=== PATIENT | female | born 1955 | race Native Hawaiian/Other Pacific Islander ===

== ENCOUNTER 2017-07-26 10:27 | Emergency (ER) | payer OTHER ==
[~2017-07-26] VITALS: Ht 154.9 cm; Wt 95.5 kg
[~2017-07-26 10:27] MED LIST: ALBU8.5H8 IH; ASPI81 PO; FLUO-191 PO; LETR2.5 PO; MECL-111 PO; NITR0.4T50 SL; SUCR1TAB PO; TOPI100T37 PO; TRAZ-144 PO; ZIPR60CA2 PO
[2017-07-26] MEDS ORDERED: ACETAMINOPHEN 325 MG TABLET ONE (10:52)
[2017-07-26] MEDS ORDERED: SODIUM CHLORIDE 0.9% 1,000 ML IV ONE (11:00)
[2017-07-26] MEDS ORDERED: ACETAMINOPHEN 325 MG TABLET PO ONE (11:00)
[2017-07-26 11:43] LABS: BASOPHILS % (AUTO) 0.1 % (0.0-2.0); EOSINOPHILS % (AUTO) 0.3 % (1.0-6.0); HEMATOCRIT 40.2 % (36-46); HEMOGLOBIN 13.9 g/dL (12.0-16.0); LYMPHOCYTES # (AUTO) 1.2 K/uL (1.0-4.8); LYMPHOCYTES % (AUTO) 13.9 % (22.0-44.0); MEAN CORPUSCULAR HEMOGLOBIN 30.9 pg (26.0-34.0); MEAN CORPUSCULAR HGB CONC 34.5 G/dL (31.0-37.0); MEAN CORPUSCULAR VOLUME 90 fL (80-100); MONOCYTES # (AUTO) 1.1 K/uL (0.1-1.0); MONOCYTES % (AUTO) 13.1 % (2.0-9.0); NEUTROPHILS # (AUTO) 6.3 K/uL (1.8-7.7); NEUTROPHILS % (AUTO) 72.6 % (40.0-70.0); PLATELET COUNT (AUTO) 179 K/uL (150-450); RED BLOOD CELL COUNT(AUTO) 4.49 MIL/uL (4.00-5.20); RED CELL DISTRIBUTION WIDTH 13.2 % (11.5-14.5)
[2017-07-26 11:58] LABS: CALCIUM, TOTAL 9.1 mg/dL (8.8-10.5); CREATININE 1.14 mg/dL (0.60-1.30); POTASSIUM 3.1 mmol/L (3.5-5.1)
[2017-07-26 12:03] LABS: ALBUMIN 3.8 g/dL (3.4-5.0); BILIRUBIN,TOTAL 1.1 mg/dL (0.1-1.0); TOTAL PROTEIN, SERUM 8.2 g/dL (6.4-8.2)
[2017-07-26 12:05] LABS: INFLUENZA TYPE A POSITIVE FOR TYPE A (NEGATIVE); INFLUENZA TYPE B NEGATIVE FOR TYPE B (NEGATIVE)
[2017-07-26] MEDS ORDERED: OSELTAMIVIR PHOSPHATE 75 MG CAPSULE PO ONE (12:30)
[2017-07-26 13:04] LABS: GLUCOSE, URINE (UA) NEGATIVE (NEGATIVE); KETONES,URINE NEGATIVE (NEGATIVE); LEUKOCYTE ESTERASE ,URINE SMALL (NEGATIVE); NITRATE,URINE NEGATIVE (NEGATIVE); OCCULT BLOOD,URINE NEGATIVE (NEGATIVE); PH,URINE 5.5 (5.0-8.0); PROTEIN,URINE TRACE (NEGATIVE)
[2017-07-26 13:05] LABS: BILIRUBIN,URINE PRELIM. POSITIVE (NEGATIVE)
[2017-07-26 13:06] LABS: APPEARANCE,URINE SLIGHTLY CLOUDY (CLEAR)
[2017-07-26 13:07] VITALS: BP 123/89
[2017-07-26 13:07] LABS: BACTERIA,URINE None Seen /HPF (None Seen); RBC,URINE 0-2 /HPF (0-2); SQUAMOUS EPITHELIAL CELL,UR Few /LPF (None Seen)
== END 2017-07-26 14:28 | disposition home or self-care (01) ==
LOC: EMS 10:29
DX: J10.1 Influenza due to other identified influenza virus with other respiratory manifestations (principal); R10.12 Left upper quadrant pain; R19.7 Diarrhea, unspecified; R11.0 Nausea; J45.909 Unspecified asthma, uncomplicated; J44.9 Chronic obstructive pulmonary disease, unspecified; Z86.73 Personal history of transient ischemic attack (TIA), and cerebral infarction without residual deficits; Z87.891 Personal history of nicotine dependence; Z79.82 Long term (current) use of aspirin; Z91.040 Latex allergy status; Z88.8 Allergy status to other drugs, medicaments and biological substances; Z91.018 Allergy to other foods
CPT/HCPCS: 36415; 71045; 80053; 81001; 83605; 83690; 84484; 85025; 87804; 93005; 99285; J7030

== ENCOUNTER 2018-06-16 03:34 | Emergency (ER) | payer OTHER ==
[~2018-06-16] VITALS: Ht 154.9 cm; Wt 95.0 kg
[~2018-06-16 03:34] MED LIST changes: -TRAZ-144 PO; +TRAZ-219 PO
[2018-06-16] MEDS ORDERED: DICY10 PO (04:14)
[2018-06-16] MEDS ORDERED: CALC1TAB90 PO (04:14)
[2018-06-16] MEDS ORDERED: LOSA1TAB12 PO (04:14)
[2018-06-16] MEDS ORDERED: CHOL200059 PO (04:14)
[2018-06-16] MEDS ORDERED: OMEP20 PO (04:14)
[2018-06-16] MEDS ORDERED: CYCL10 PO (04:14)
[2018-06-16] MEDS ORDERED: ATOR20TA86 PO (04:14)
[2018-06-16] MEDS ORDERED: DIPH25 PO (04:14)
[2018-06-16] MEDS ORDERED: ONDA4 PO (04:14)
[2018-06-16] MEDS ORDERED: LURA20TA PO (04:14)
[2018-06-16] MEDS ORDERED: FURO20 PO (04:14)
[2018-06-16] MEDS ORDERED: GABA-531 PO (04:14)
[2018-06-16] MEDS ORDERED: BENZ-51 PO (04:14)
[2018-06-16] MEDS ORDERED: OXYMETAZOLINE HCL 0.05% 15 ML NASAL SPRAY NASAL ONE (05:00)
[2018-06-16 05:28] LABS: BASOPHILS % (AUTO) 0.8 % (0.0-2.0); EOSINOPHILS % (AUTO) 3.5 % (1.0-6.0); HEMATOCRIT 39.2 % (36-46); HEMOGLOBIN 13.5 g/dL (12.0-16.0); LYMPHOCYTES # (AUTO) 1.7 K/uL (1.0-4.8); LYMPHOCYTES % (AUTO) 21.4 % (22.0-44.0); MEAN CORPUSCULAR HGB CONC 34.3 G/dL (31.0-37.0); MEAN CORPUSCULAR VOLUME 90 fL (80-100); MONOCYTES # (AUTO) 0.6 K/uL (0.1-1.0); MONOCYTES % (AUTO) 7.8 % (2.0-9.0); NEUTROPHILS # (AUTO) 5.2 K/uL (1.8-7.7); NEUTROPHILS % (AUTO) 66.5 % (40.0-70.0); PLATELET COUNT (AUTO) 190 K/uL (150-450); RED BLOOD CELL COUNT(AUTO) 4.34 MIL/uL (4.00-5.20); RED CELL DISTRIBUTION WIDTH 12.9 % (11.5-14.5)
[2018-06-16 05:38] LABS: CALCIUM, TOTAL 8.4 mg/dL (8.8-10.5); CREATININE 1.21 mg/dL (0.60-1.30); POTASSIUM 3.7 mmol/L (3.5-5.1)
[2018-06-16 05:39] LABS: PROTHROMBIN TIME 10.2 SEC (9.4-11.6)
[2018-06-16 05:47] LABS: ALBUMIN 3.4 g/dL (3.4-5.0); BILIRUBIN,TOTAL 0.5 mg/dL (0.1-1.0); TOTAL PROTEIN, SERUM 7.6 g/dL (6.4-8.2)
[2018-06-16 06:00] VITALS: BP 131/66
== END 2018-06-16 06:18 | disposition home or self-care (01) ==
LOC: EMS 03:34
DX: M25.511 Pain in right shoulder (principal); R04.0 Epistaxis; G47.30 Sleep apnea, unspecified; M79.7 Fibromyalgia; G89.29 Other chronic pain; M19.90 Unspecified osteoarthritis, unspecified site; J45.909 Unspecified asthma, uncomplicated; F32.9 Major depressive disorder, single episode, unspecified; Z90.49 Acquired absence of other specified parts of digestive tract; Z98.890 Other specified postprocedural states; Z87.891 Personal history of nicotine dependence; Z91.040 Latex allergy status; Z88.8 Allergy status to other drugs, medicaments and biological substances; Z91.018 Allergy to other foods; Z79.82 Long term (current) use of aspirin; Z79.899 Other long term (current) drug therapy
CPT/HCPCS: 29240

== ENCOUNTER 2020-08-25 13:36 | Emergency (ER) | payer OTHER ==
[~2020-08-25] VITALS: Ht 154.9 cm; Wt 96.4 kg
[~2020-08-25 13:36] MED LIST changes: +ASPI-728 PO; -ASPI81 PO; +ATOR20TA86 PO; +BENZ-51 PO; +CALC1TAB90 PO; +CHOL200016 PO; +CYCL10 PO; +DICY10 PO; +DIPH25 PO; +FURO20 PO; +GABA-1181 PO; -LETR2.5 PO; +LOSA1TAB12 PO; +LURA20TA PO; -MECL-111 PO; +MECL-160 PO; +OMEP20 PO; +ONDA-104 PO; -SUCR1TAB PO; -TRAZ-219 PO; +TRAZ-252 PO; -ZIPR60CA2 PO
[2020-08-25] MEDS ORDERED: ASPIRIN 81 MG CHEWABLE TABLET PO ONE (14:15)
[2020-08-25 14:54] LABS: BASOPHILS % (AUTO) 0.9 % (0.0-2.0); EOSINOPHILS % (AUTO) 4.9 % (1.0-6.0); HEMATOCRIT 42.5 % (36-46); HEMOGLOBIN 14.1 g/dL (12.0-16.0); LYMPHOCYTES # (AUTO) 2.2 K/uL (1.0-4.8); LYMPHOCYTES % (AUTO) 28.8 % (22.0-44.0); MEAN CORPUSCULAR HEMOGLOBIN 29.5 pg (26.0-34.0); MEAN CORPUSCULAR HGB CONC 33.2 G/dL (31.0-37.0); MEAN CORPUSCULAR VOLUME 89 fL (80-100); MONOCYTES # (AUTO) 0.6 K/uL (0.1-1.0); MONOCYTES % (AUTO) 8.4 % (2.0-9.0); NEUTROPHILS # (AUTO) 4.3 K/uL (1.8-7.7); PLATELET COUNT (AUTO) 200 K/uL (150-450); RED BLOOD CELL COUNT(AUTO) 4.79 MIL/uL (4.00-5.20); RED CELL DISTRIBUTION WIDTH 14.2 % (11.5-14.5)
[2020-08-25 15:03] LABS: ANION GAP 10 mmol/L (8-16); CALCIUM, TOTAL 9.4 mg/dL (8.8-10.5); CARBON DIOXIDE 26 mmol/L (22-29); CHLORIDE 104 mmol/L (98-107); CREATININE 1.14 mg/dL (0.60-1.30); GLOMERULAR FILTR. RATE CALC 48 mL/min (>60); GLUCOSE,RANDOM 107 mg/dL (70-110); POTASSIUM 3.2 mmol/L (3.5-5.1); SODIUM SERUM 140 mmol/L (136-145); UREA NITROGEN, BLOOD 20 mg/dL (7-18)
[2020-08-25 15:26] LABS: B-TYPE NATRIURETIC PEPTIDE < 5 pg/mL (0-100)
[2020-08-25 15:29] LABS: ALANINE AMINOTRANSFERASE 39 U/L (12-78); ALBUMIN 3.8 g/dL (3.4-5.0); ALKALINE PHOSPHATASE 86 U/L (46-116); ASPARTATE AMINOTRANSFERASE 31 U/L (15-37); BILIRUBIN,TOTAL 0.7 mg/dL (0.1-1.0); CREATINE KINASE, TOTAL ONLY 236 U/L (26-192); TOTAL PROTEIN, SERUM 8.4 g/dL (6.4-8.2)
[2020-08-25] MEDS ORDERED: KETOROLAC TROMETHAMINE 30 MG/ML VIAL IVP ONE (15:45)
[2020-08-25 16:15] VITALS: BP 128/54
[2020-08-25 16:26] LABS: APPEARANCE,URINE CLEAR (CLEAR); BILIRUBIN,URINE NEGATIVE (NEGATIVE); GLUCOSE, URINE (UA) NEGATIVE (NEGATIVE); KETONES,URINE NEGATIVE (NEGATIVE); LEUKOCYTE ESTERASE ,URINE TRACE (NEGATIVE); NITRATE,URINE NEGATIVE (NEGATIVE); OCCULT BLOOD,URINE MODERATE (NEGATIVE); PH,URINE 6.5 (5.0-8.0); PROTEIN,URINE NEGATIVE (NEGATIVE); UROBILINOGEN,URINE 0.2 mg/dL (<=1.0)
[2020-08-25 16:58] LABS: RBC,URINE 0-2 /HPF (0-2)
[2020-08-25 16:59] LABS: BACTERIA,URINE None Seen /HPF (None Seen); SQUAMOUS EPITHELIAL CELL,UR Few /LPF (None Seen)
== END 2020-08-25 16:45 | disposition home or self-care (01) ==
LOC: EMS 13:49
DX: R07.2 Precordial pain (principal); J45.909 Unspecified asthma, uncomplicated; F32.9 Major depressive disorder, single episode, unspecified; Z87.891 Personal history of nicotine dependence
CPT/HCPCS: 36415; 71045; 80053; 81001; 82550; 83880; 84484; 85025; 93005; 96374; 99285; J1885

== ENCOUNTER 2021-07-09 16:40 | Emergency (ER) | payer OTHER ==
[~2021-07-09] VITALS: Ht 154.9 cm; Wt 97.7 kg
[~2021-07-09 16:40] MED LIST changes: +ASPI-1450 PO; -ASPI-728 PO; -BENZ-51 PO; +BENZ-70 PO; -CYCL10 PO; +CYCL10TA17 PO
[2021-07-09] MEDS ORDERED: ACETAMINOPHEN 325 MG TABLET PO ONE (19:15)
[2021-07-09 20:48] VITALS: BP 135/76
== END 2021-07-09 20:54 | disposition home or self-care (01) ==
LOC: EMS 16:59
DX: R51.9 Headache, unspecified (principal); J44.9 Chronic obstructive pulmonary disease, unspecified; F32.9 Major depressive disorder, single episode, unspecified; Z87.891 Personal history of nicotine dependence; Z88.8 Allergy status to other drugs, medicaments and biological substances; Z79.899 Other long term (current) drug therapy
CPT/HCPCS: 70450; 99284